=== PATIENT | female | born 1940 | race Caucasian/White ===

== ENCOUNTER 2016-09-24 13:34 | Emergency (ER) | payer MEDICARE, BC, OTHER ==
[~2016-09-24] VITALS: Ht 162.6 cm; Wt 74.8 kg
[~2016-09-24 13:34] MED LIST: CELE200C PO; SYNT137T PO; TRAM50TA PO
[2016-09-24 13:59] VITALS: BP 145/83; PULSE 84; RESP 16; TEMP 98.2; O2SAT 96
[2016-09-24] MEDS ORDERED: LEVO-86 PO (14:12)
[2016-09-24] MEDS ORDERED: CELE200C PO (14:12)
[2016-09-24] MEDS ORDERED: TRAM50TA PO (14:13)
--- NOTE | 2016-09-24 14:27 | PD ---
HPI Chief Complaint: Fall Time Seen by Provider: 14:27 Travel History International Travel<30 days: No Contact w/Intl Traveler<30days: No Traveled to known affect area: No History of Present Illness HPI 76-year-old female presents to the emergency department for evaluation of fall. The patient states that she was walking in her garage and tripped over something causing her to fall forward catching herself with her hands but ultimately hitting her face on the ground. States that her glasses cut the bridge of her nose. States that she is having pain in her left hand, right ribs and a headache. She denies any lightheadedness, dizziness, nausea, vomiting, blurred vision, neck pain, back pain, numbness or tingling, weakness. Denies any anticoagulation. Unsure of last tetanus vaccination. No other complaints. PFSH Past Medical History Arthritis: Yes High Cholesterol: Yes Diminished Hearing: No Thyroid Disease: Yes Tetanus Vaccination: Unknown Influenza Vaccination: Yes Menopausal: Yes Past Surgical History Eye Surgery: Yes (right eye-cataract removal) Tonsillectomy: Yes Social History Alcohol Use: Yes ("occasionally") Tobacco Use: No Substance Use: No Allergies-Medications (Allergen,Severity, Reaction): Coded Allergies: Cipro (Verified Allergy, Severe, hives, 09/24/16) Sulfa (Verified Allergy, Severe, UNKNOWN, 09/24/16) Reported Meds & Prescriptions Reported Meds & Active Scripts Active Reported Tramadol (Tramadol HCl) 50 Mg Tab 50 Mg PO Q8H PRN Celebrex (Celecoxib) 200 Mg Cap 200 Mg PO BID Synthroid (Levothyroxine Sodium) 137 Mcg Tab 137 Mcg PO DAILY Review of Systems Except as stated in HPI: all other systems reviewed are Neg Physical Exam Narrative GENERAL: Well-nourished and well-developed pleasant patient in no acute distress. SKIN: Skin avulsion to bridge of nose. Abrasions to right side of face. HEAD: Normocephalic and atraumatic. No bony point tenderness or crepitus noted throughout the scalp and facial bones. EYES: No scleral icterus, injection, or drainage. PERRLA. EOMI. No hyphema present. ENT: Swelling of nose with tenderness to palpation. No septal hematoma or hemotympanum noted. Oropharynx is clear and the airway is patent. NECK: Supple and the trachea is midline. No obvious deformities, crepitus, or midline tenderness noted. Full range of motion. CARDIOVASCULAR: Regular rate and rhythm. RESPIRATORY: Breath sounds are equal bilaterally with no accessory muscle use, wheezing, rhonchi, or crackles. Tenderness to palpation of right anterior ribs , no obvious deformities or step-offs noted. GASTROINTESTINAL: Abdomen is soft, non-tender, and nondistended. MUSCULOSKELETAL: Tenderness to palpation over MCP of left second and third joints with limited range of motion secondary to pain. Radial pulses are 2+ bilaterally. Capillary refill is within normal limits. 2 point discrimination is intact. No obvious deformities, swelling, cyanosis, or ecchymosis is present throughout the upper and lower extremities. Patient has full range of motion without any signs of neurovascular compromise. BACK: Nontender without any obvious deformities, bony point tenderness, or crepitus noted throughout the thoracic and lumbar vertebrae. NEUROLOGICAL: Awake, alert, and oriented. Normal speech and gait. Cranial nerves are grossly intact. Data Data Last Documented VS Vital Signs Date Time Temp Pulse Resp B/P Pulse Ox O2 Delivery O2 Flow Rate FiO2 09/24/16 14:07 16 100 Room Air 09/24/16 13:59 98.2 84 145/[address] Brain W/O Iv Contrast(Rout) (09/24/16 14:25) Ct Facial Bones W/O Iv Cont (09/24/16 14:25) Hand, Complete ([id number]) (09/24/16 14:25) Acetaminophen (Tylenol) (09/24/16 14:30) Chest, Pa & Lat (09/24/16 14:25) Tetanus/Diphtheria Tox Adult (Tetanus/Di (09/24/16 14:30) Wound Care (09/24/16 15:49) MDM Medical Decision Making Medical Screen Exam Complete: Yes Emergency Medical Condition: Yes Differential Diagnosis Contusion versus fracture versus abrasion versus avulsion versus intracranial hemorrhage unlikely Narrative Course 76-year-old female presents the emergency department for evaluation of mechanical fall hitting her face, hands and right ribs. Patient is afebrile, vital signs are stable. No focal neurologic deficits. CT and x-ray imaging has been ordered and is pending. Head CT is negative for any acute abnormalities. CT of the facial bones is negative for any acute abnormalities. X-ray of the left hand is negative for any acute abnormalities. Chest x-ray is negative for any acute abnormalities. Patient has remained stable and without complaint while here in the emergency department. Her wound is cleaned and dressed with ointment and a Band-Aid. Her left hand is placed in an Stefano wrap. She states that she has tramadol at home for pain and is comfortable taking this for her pain. Discussed supportive care with the patient. Advised her to follow-up as an outpatient with her PCP. Patient verbalizes understanding and agreement with treatment plan. Diagnosis Primary Impression: Facial contusion Qualified Code: S00.83XA - Facial contusion, initial encounter Additional Impressions: Skin avulsion Contusion of rib on right side Qualified Code: S20.211A - Contusion of rib on right side, initial encounter Sprain of left hand Qualified Code: S63.92XA - Sprain of left hand, initial encounter Fall Qualified Code: W19.XXXA - Fall, initial encounter Referrals: Primary Care Physician Patient Instructions: General Instructions Additional Instructions: Rest. Apply ice for 20 minutes on, 20 minutes off. Follow-up with your Primary Care Physician. Return to the ED for any acute worsening of symptoms. Med/Other Pt SpecificInfo: No Change to Meds Disposition: 01 DISCHARGE HOME Condition: Stable Keisha Kohli Sep 24, 2016 14:27
[2016-09-24] MEDS ORDERED: TETANUS/DIPHTHERIA TOXOID ADULT 0.5 ML VIAL IM ONE (14:30)
[2016-09-24] MEDS ORDERED: ACETAMINOPHEN 500 MG CPLT PO ONE (14:30)
--- NOTE | 2016-09-24 15:12 | RADHPO ---
EXAM DATE/TIME: 09/24/2016 14:43 [facility] COMPARISON: No previous studies available for comparison. INDICATIONS : Trauma. Fell on concrete floor. Abrasions to face and bridge of nose. Cephalgia. RADIATION DOSE: 34.78 CTDIvol (mGy) MEDICAL HISTORY : Hypothyroidism. SURGICAL HISTORY : None. ENCOUNTER: Initial ACUITY: 1 day PAIN SCORE: 4/10 LOCATION: facial TECHNIQUE: Volumetric scanning of the facial bones was performed. Using automated exposure control and adjustme nt of the mA and/or kV according to patient size, radiation dose was kept as low as reasonably achiev able to obtain optimal diagnostic quality images. FINDINGS: No definite fractures, or dislocations are identified. No definite lytic or sclerotic lesion is seen . There is mild mucoperiosteal thickening within some of the eithmoid air cells. CONCLUSION: No definite fracture is seen for technique. Rosemary Ozuna MD on September 24, 2016 at 15:07 Board Certified Radiologist. This report was verified electronically.
--- NOTE | 2016-09-24 15:14 | RADHPO ---
EXAM DATE/TIME: 09/24/2016 14:43 [facility] COMPARISON: No previous studies available for comparison. INDICATIONS : Trauma. Fell on concrete floor. Abrasions to face and bridge of nose. Cephalgia. RADIATION DOSE: 69.39 CTDIvol (mGy) MEDICAL HISTORY : Hypothyroidism. SURGICAL HISTORY : None. ENCOUNTER: Initial ACUITY: 1 day PAIN SCALE: 2/10 LOCATION: Cranial TECHNIQUE: Multiple contiguous axial images were obtained of the head. Using automated exposure control and adj ustment of the mA and/or kV according to patient size, radiation dose was kept as low as reasonably a chievable to obtain optimal diagnostic quality images. FINDINGS: There are old lacunar infarcts within the left basal ganglia and to a much lesser extent right basal ganglia. There is no acute hemorrhage, acute infarct, mass effect or extra-axial fluid collections. The ventricles, sulci, and cisterns are normal in size, shape and position for the patient's age. The bone windows are unremarkable. CONCLUSION: 1. 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 2. No acute infarct, acute hemorrhage, mass effect or extra-axial fluid collections. Jarvis Horn MD on September 24, 2016 at 15:05 Board Certified Radiologist. This report was verified electronically.
--- NOTE | 2016-09-24 15:19 | RADHPO ---
EXAM DATE/TIME: 09/24/2016 15:03 [facility] COMPARISON: No previous studies available for comparison. INDICATIONS : Left hand pain; fell today. MEDICAL HISTORY : None. SURGICAL HISTORY : None. ENCOUNTER: Initial ACUITY: 1 day PAIN SCORE: 8/10 LOCATION: Left 4thand 5th digits; hand. FINDINGS: No definite fractures, or dislocations are identified. No definite lytic or sclerotic lesion is seen . Moderate degenerative arthritis is present within multiple interphalangeal joints and first carpome tacarpal joint. CONCLUSION: Chronic changes and no evidence for acute fracture. Rosemary Ozuna MD on September 24, 2016 at 15:11 Board Certified Radiologist. This report was verified electronically.
--- NOTE | 2016-09-24 15:38 | RADHPO ---
EXAM DATE/TIME: 09/24/2016 14:58 [facility] COMPARISON: No previous studies available for comparison. INDICATIONS : Chest discomfort; fell today. MEDICAL HISTORY : None. SURGICAL HISTORY : ENCOUNTER: Initial ACUITY: 1 day PAIN SCORE: 10 LOCATION: Bilateral chest FINDINGS: PA and lateral views of the chest demonstrate the lungs to be symmetrically aerated without evidence of mass, infiltrate or effusion. The cardiomediastinal contours are unremarkable. Osseous structure s are intact. CONCLUSION: No acute disease. Harshil Nicholson MD on September 24, 2016 at 15:36 Board Certified Radiologist. This report was verified electronically.
== END 2016-09-24 16:36 | disposition home or self-care (01) ==
LOC: PHEFT 13:34
DX: S00.83XA Contusion of other part of head, initial encounter (principal); S20.211A Contusion of right front wall of thorax, initial encounter; S63.92XA Sprain of unspecified part of left wrist and hand, initial encounter; Z23 Encounter for immunization; E78.00 Pure hypercholesterolemia, unspecified; E07.9 Disorder of thyroid, unspecified; W18.00XA Striking against unspecified object with subsequent fall, initial encounter; Y93.01 Activity, walking, marching and hiking; Y92.008 Other place in unspecified non-institutional (private) residence as the place of occurrence of the external cause; Y99.8 Other external cause status
CPT/HCPCS: 70450; 70486; 71020; 73130; 90471; 90714

== ENCOUNTER 2018-02-02 17:01 | Observation (INO) ==
--- NOTE | 2018-02-02 18:16 | ED ---
HPI General Chief complaint: Eye Problems Stated complaint: Sent by primary doc Source: patient Mode of arrival: ambulatory Limitations: no limitations History of Present Illness HPI Narrative: Patient presents with acute onset of decreased vision of right eye. The vision loss is central with the peripheral severe preserved. The patient notes acute onset of this symptom yesterday afternoon. Patient was seen by her PMD and referred to automotive internet sales manager today. 1 hour prior to arrival patient was seen by the automotive internet sales manager and sent here for our evaluation. 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 Patient has no pain or discomfort but has the loss of vision persistently without change since occurrence yesterday afternoon. Patient has no history of CVA or previous episodes similar to this. Patient has no other neurologic symptoms weakness or muscle weakness. Related Data Home Medications Medication Instructions Recorded Confirmed Celebrex 50 mg PO DAILY 02/02/18 02/02/18 Synthroid PO DAILY 02/02/18 tramadol 100 mg PO BID 02/02/18 02/02/18 Allergies Allergy/AdvReac Type Severity Reaction Status Date / Time ciprofloxacin Allergy Severe hives Verified 02/02/18 17:24 Sulfa (Sulfonamide Allergy Severe UNKNOWN Verified 02/02/18 17:24 Antibiotics) Review of Systems ROS: all other systems reviewed are negative [facility] Medical History Medical History Arthritis (Acute) Hx of hysterectomy (Acute) Hyperthyroidism (Acute) Surgical History Surgical History Hx of eye surgery (Acute) Social History Social History Substance History: No History of Abuse Second Hand Smoke Exposure: No Smoking Status: Never smoker How Often Do You Have a Drink Containing Alcohol: 4 or more times a week Recent Travel in [facility] within the Last 8 Weeks: No Recent Out of Country Travel within the Last 8 Weeks: No Immunization History Tetanus Immunization: <5 Years Hx Influenza Vaccine This Season: Yes Exam Narrative Exam Narrative: GENERAL: Alert and oriented SKIN: Focused skin assessment warm/dry. HEAD: Atraumatic. Normocephalic. EYES: Pupils equal and round. No scleral icterus. No injection or drainage. Pupils dilated secondary to dilatation prior to arrival. Funduscopic shows central artery occlusion. Patient has significantly reduced central vision but peripheral vision maintained. ENT: No nasal bleeding or discharge. Mucous membranes pink and moist. NECK: Trachea midline. No JVD. CARDIOVASCULAR: Regular rate and rhythm. No murmur appreciated. RESPIRATORY: No accessory muscle use. Clear to auscultation. Breath sounds equal bilaterally. GASTROINTESTINAL: Abdomen soft, non-tender, nondistended. Hepatic and splenic margins not palpable. MUSCULOSKELETAL: No obvious deformities. No clubbing. No cyanosis. No edema. NEUROLOGICAL: Awake and alert. No obvious cranial nerve deficits. Motor grossly within normal limits. Normal speech. PSYCHIATRIC: Appropriate mood and affect; insight and judgment normal. Course Reevaluation(s) Reevaluation #1: Patient advised as to findings and the need for admission for further evaluation for the cause. Patient wants to signed out AGAINST MEDICAL ADVICE however agrees that we talked to her automotive internet sales manager first. Time: 22:30 Reevaluation #2: Talk to Dr. Degroot the patient's automotive internet sales manager. He strongly advised the patient be admitted for at least 23 hours and have further studies to make sure there is no evidence of mural thrombus or carotid embolization. Patient agrees for admission. Time: 23:17 Initial Documented Vital Signs Pulse Rate 72 02/02/18 17:20 Respiratory Rate 16 02/02/18 17:20 Blood Pressure 161/78 H 02/02/18 17:20 Pulse Oximetry 98 02/02/18 17:20 Last Documented Vital Signs Temperature 97.8 F 02/02/18 17:21 Pulse Rate 75 02/02/18 17:21 Respiratory Rate 16 02/02/18 17:21 Blood Pressure 157/86 H 02/02/18 20:14 Pulse Oximetry 99 02/02/18 17:21 Medical Decision Making MDM Narrative Medical decision making narrative: Patient had acute onset of vision loss in the right eye at 3 PM yesterday and was seen and evaluated by PMD and automotive internet sales manager prior to arrival. Patient was scheduled for CTA of head and neck. Case was discussed with patient's automotive internet sales manager Dr. Nur. Funduscopic showed central artery occlusion and CT showed no evidence of other vascular difficulty. Medical Screen Exam Complete: Yes Emergency Medical Condition: Yes Lab Data Result diagrams: 02/02/18 18:57 02/02/18 18:57 Lab Results 02/02/18 02/02/18 02/02/18 Range/Units 18:43 18:57 18:57 CBC w Diff Auto diff final WBC 6.4 (4.0-11.0) th/mm3 RBC 4.30 (4.00-5.30) mil/mm3 Hgb 13.3 (11.6-15.3) gm/dL Hct 39.4 (35.0-46.0) % MCV 91.8 (80.0-100.0) fL MCH 31.0 (27.0-34.0) pg MCHC 33.8 (32.0-36.0) % RDW 13.4 (11.6-17.2) % Plt Count 284 (150-450) th/mm3 MPV 8.0 (7.0-11.0) fL Neut % (Auto) 46.9 (16.0-70.0) % Lymph % (Auto) 39.0 (9.0-44.0) % Woodward % (Auto) 9.6 H (0.0-8.0) % Eos % (Auto) 3.7 (0.0-4.0) % Baso % (Auto) 0.8 (0.0-2.0) % Neut # (Auto) 3.0 (1.8-7.7) th/mm3 Lymph # (Auto) 2.5 (1.0-4.8) th/mm3 Woodward # (Auto) 0.6 (0.0-0.9) th/mm3 Eos # (Auto) 0.2 (0.0-0.4) th/mm3 Baso # (Auto) 0.1 (0.0-0.2) th/mm3 WBC Differential . Differential Comment . PT 10.3 (9.8-11.6) sec INR 1.0 Ratio APTT 26.2 (24.3-30.1) sec Sodium (136-145) meq/L Potassium (3.5-5.1) meq/L Chloride (98-107) meq/L Carbon Dioxide (21.0-32.0) meq/L Anion Gap (5-15) meq/L BUN (7-18) mg/dL Creatinine (0.50-1.00) mg/dL Estimated GFR (>89) mL/min Random Glucose (74-106) mg/dL Calcium (8.5-10.1) mg/dL Total Creatine Kinase (26-192) U/L CK-MB (CK-2) (0.5-3.6) ng/mL CK-MB (CK-2) % (0.0-4.0) % Troponin I (0.02-0.05) ng/mL Urine Color Yellow (Yellw/Straw) Urine Clarity Clear (Clear) Urine pH 6.0 (5.0-8.5) Ur Specific [place] 1.010 (1.002-1.035) Urine Protein Negative (Neg-Trace) mg/dL Urine Glucose (UA) 100 H (Negative) mg/dL Urine Ketones Negative (Negative) mg/dL Urine Occult Blood Negative (Negative) Urine Nitrate Negative (Negative) Urine Bilirubin Negative (Negative) Urine Urobilinogen 0.2 (Less than 2) mg/dL Ur Leukocyte Esterase Small H (Negative) Urine RBC 0-3 (0-3) /hpf Urine WBC 0-5 (0-5) /hpf Ur Squamous Epith Cells 0-5 (0-5) /hpf Micro UA Comment Culture not ind Ur Microscopic Review Microscopic reviewed Urine Culture Comments Culture not ind 02/02/18 Range/Units 18:57 CBC w Diff WBC (4.0-11.0) th/mm3 RBC (4.00-5.30) mil/mm3 Hgb (11.6-15.3) gm/dL Hct (35.0-46.0) % MCV (80.0-100.0) fL MCH (27.0-34.0) pg MCHC (32.0-36.0) % RDW (11.6-17.2) % Plt Count (150-450) th/mm3 MPV (7.0-11.0) fL Neut % (Auto) (16.0-70.0) % Lymph % (Auto) (9.0-44.0) % Woodward % (Auto) (0.0-8.0) % Eos % (Auto) (0.0-4.0) % Baso % (Auto) (0.0-2.0) % Neut # (Auto) (1.8-7.7) th/mm3 Lymph # (Auto) (1.0-4.8) th/mm3 Woodward # (Auto) (0.0-0.9) th/mm3 Eos # (Auto) (0.0-0.4) th/mm3 Baso # (Auto) (0.0-0.2) th/mm3 WBC Differential Differential Comment PT (9.8-11.6) sec INR Ratio APTT (24.3-30.1) sec Sodium 140 (136-145) meq/L Potassium 5.2 H (3.5-5.1) meq/L Chloride 105 (98-107) meq/L Carbon Dioxide 28.6 (21.0-32.0) meq/L Anion Gap 6 (5-15) meq/L BUN 14 (7-18) mg/dL Creatinine 0.97 (0.50-1.00) mg/dL Estimated GFR 56 L (>89) mL/min Random Glucose 84 (74-106) mg/dL Calcium 8.7 (8.5-10.1) mg/dL Total Creatine Kinase 216 H (26-192) U/L CK-MB (CK-2) 3.5 (0.5-3.6) ng/mL CK-MB (CK-2) % 1.6 (0.0-4.0) % Troponin I Less than 0.02 L (0.02-0.05) ng/mL Urine Color (Yellw/Straw) Urine Clarity (Clear) Urine pH (5.0-8.5) Ur Specific [place] (1.002-1.035) Urine Protein (Neg-Trace) mg/dL Urine Glucose (UA) (Negative) mg/dL Urine Ketones (Negative) mg/dL Urine Occult Blood (Negative) Urine Nitrate (Negative) Urine Bilirubin (Negative) Urine Urobilinogen (Less than 2) mg/dL Ur Leukocyte Esterase (Negative) Urine RBC (0-3) /hpf Urine WBC (0-5) /hpf Ur Squamous Epith Cells (0-5) /hpf Micro UA Comment Ur Microscopic Review Urine Culture Comments Imaging Data Radiologist's impression: Head CTA 02/02/18 18:19 CONCLUSION: Negative CTA of the head. Neck CTA 02/02/18 18:19 CONCLUSION: Minimal calcification of the proximal left subclavian artery and the left carotid bulb regions without significant stenosis. Discharge Plan Discharge Disposition Patient Disposition: 30 Still Patient Physicians Team ED Provider: Rd Mcdaniels Primary Care Provider: Yair Vazquez Rxs /Orders / Referrals /Forms Prescriptions: No Action Celebrex 50 mg PO DAILY RF: 0 Synthroid PO DAILY RF: 0 tramadol 100 mg PO BID RF: 0 Status ED Status: With Nurse
[2018-02-02] MEDS ORDERED: Sod Chloride 0.9% Inj 1,000 ML IV.CONT SCH (18:30)
[2018-02-02 19:05] LABS: Bilirubin,Urine Negative (Negative); Clarity,Urine Clear (Clear); Color,Urine Yellow (Yellw/Straw); Glucose,Urine (UA) 100 mg/dL (Negative); Leukocyte Esterase,Urine Small (Negative); Nitrite,Urine Negative (Negative); Urobilinogen,Urine 0.2 mg/dL (Less than 2)
[2018-02-02 19:10] LABS: White Blood Count 6.4 th/mm3 (4.0-11.0)
[2018-02-02 19:11] LABS: RBC,Urine 0-3 /hpf (0-3); Squamous Epithelial Cell,Urine 0-5 /hpf (0-5); WBC,Urine 0-5 /hpf (0-5)
[2018-02-02 19:11] LABS: Baso # (Auto) 0.1 th/mm3 (0.0-0.2); Baso % (Auto) 0.8 % (0.0-2.0); Eos # (Auto) 0.2 th/mm3 (0.0-0.4); Eos % (Auto) 3.7 % (0.0-4.0); Hematocrit 39.4 % (35.0-46.0); Hemoglobin 13.3 gm/dL (11.6-15.3); Lymph # (Auto) 2.5 th/mm3 (1.0-4.8); Mean Corpuscular HGB Conc 33.8 % (32.0-36.0); Mean Corpuscular Volume 91.8 fL (80.0-100.0); Mono # (Auto) 0.6 th/mm3 (0.0-0.9); Mono % (Auto) 9.6 % (0.0-8.0); Neut % (Auto) 46.9 % (16.0-70.0); Platelet Count 284 th/mm3 (150-450); Red Cell Distribution Width 13.4 % (11.6-17.2)
[2018-02-02 19:14] LABS: Chloride 105 meq/L (98-107); Potassium 5.2 meq/L (3.5-5.1); Sodium 140 meq/L (136-145)
[2018-02-02 19:17] LABS: Anion Gap 6 meq/L (5-15); Calcium 8.7 mg/dL (8.5-10.1); Carbon Dioxide 28.6 meq/L (21.0-32.0); Glucose,Random 84 mg/dL (74-106)
[2018-02-02 19:18] LABS: Activated Partial Thrombo Time 26.2 sec (24.3-30.1); Blood Urea Nitrogen 14 mg/dL (7-18); Prothrombin Time 10.3 sec (9.8-11.6)
[2018-02-02 19:21] LABS: Glomerular Filtration Rate 56 mL/min (>89)
[2018-02-02 19:24] LABS: Creatine Kinase 216 U/L (26-192)
[2018-02-02 19:36] LABS: CKMB Percent 1.6 % (0.0-4.0); Creatine Kinase MB 3.5 ng/mL (0.5-3.6)
--- NOTE | 2018-02-02 21:27 | CT ---
EXAM DATE: 02/02/2018 9:20 PM EDT AGE/SEX: 77 years / Female INDICATIONS: Vision loss right eye. Evaluate for central artery occlusion. CLINICAL DATA: This is the patient's initial encounter. Patient reports that signs and symptoms have been present for 1 day and indicates a pain score of 0/10. MEDICAL/SURGICAL HISTORY: None. . Right eye. RADIATION DOSE: 42.28 CTDI (mGy) ; Combined studies COMPARISON: [facility], CT BRAIN W/O CONTRAST, 09/24/2016. . TECHNIQUE: Volumetric scanning was performed using a multi-row detector CT scanner during bolus infu parker of 100 ml Omnipaque 350 (iohexol) nonionic water-soluble contrast as a cumulative dose for mult iple exams. The data was post processed with a variety of visualization algorithms including full v olume maximum intensity projection, multi-planar sliding thin slab reformation, curved planar reforma tion, and surface rendering techniques. Using automated exposure control and adjustment of the mA an d/or kV according to patient size, radiation dose was kept as low as reasonably achievable to obtain optimal diagnostic quality images. DICOM format image data is available electronically for review an d comparison. FINDINGS: There is excellent visualization of the major intracranial arteries out to the second-order branch ve ssels. There is no evidence for aneurysm, vessel truncation or stenosis, and no evidence for vascula r malformation. The internal carotid arteries are normal bilaterally. There are seen to normally bifu rcate into the anterior and middle cerebral arteries. Both vertebral artery patent. Most of the basil ar artery flow arises from the left vertebral artery. The basilar artery primarily ends as the left p osterior cerebral artery. Most of the flow from the right posterior cerebral artery arises from the r ight internal carotid artery. This a normal variant. The distal flow appears symmetric. CONCLUSION: Negative CTA of the head. Electronically signed by: Hosea Shaw MD 02/02/2018 9:26 PM EDT
--- NOTE | 2018-02-02 21:32 | CT ---
EXAM DATE: 02/02/2018 9:23 PM EDT AGE/SEX: 77 years / Female INDICATIONS: Vision loss right eye. Evaluate for occlusion in right central artery. CLINICAL DATA: This is the patient's initial encounter. Patient reports that signs and symptoms have been present for 1 day and indicates a pain score of 0/10. MEDICAL/SURGICAL HISTORY: None. None. RADIATION DOSE: 42.28 CTDI (mGy) ; Combined studies COMPARISON: No prior exams available for comparison. TECHNIQUE: Volumetric scanning was performed using a multirow detector CT scanner during bolus infus ion of 100 ml Omnipaque 350 (iohexol) nonionic water-soluble contrast as a cumulative dose for multi ple exams. The data was postprocessed with a variety of visualization algorithms including full-vol ume maximum intensity projection, multiplanar sliding thin-slab reformation, curved-planar reformatio n, and surface-rendering techniques. Using automated exposure control and adjustment of the mA and/o r kV according to patient size, radiation dose was kept as low as reasonably achievable to obtain opt imal diagnostic quality images. DICOM format image data is available electronically for review and c omparison. FINDINGS: Aortic Arch: There is a three-vessel origin of the great vessels from the aorta. No evidence of ost ial narrowing. There is minimal calcification at the proximal left subclavian artery region without s ignificant stenosis. Right Carotid: The common carotid artery is intact. The carotid bulb has a normal configuration wit hout ulceration or narrowing. The internal carotid artery lumen is smooth without stenosis. The ext ernal carotid artery is intact. Left Carotid: The common carotid artery is intact. There is minimal calcification at the left carot id bulb region without significant stenosis. The internal carotid artery lumen is smooth without jc nosis. The external carotid artery is intact. Vertebrals: The vertebral arteries have a symmetric diameter. No stenotic lesions are seen. Percent stenosis is calculated using the diameter of the stenotic region over the diameter of the nor mal distal internal carotid artery. CONCLUSION: Minimal calcification of the proximal left subclavian artery and the left carotid bulb regions withou t significant stenosis. Electronically signed by: Hosea Shaw MD 02/02/2018 9:30 PM EDT
[2018-02-02] MEDS ORDERED: Enoxaparin Inj 100 MG/ML Syringe SQ ONE (23:26)
[2018-02-02] MEDS ORDERED: Dextrose 50% in Water 50 ML Vial IV.PUSH PRN (23:57)
[2018-02-03] MEDS ORDERED: Enoxaparin Inj 60 MG/0.6 ML Syringe SQ SCH (09:00)
[2018-02-03 10:46] LABS: Chol/HDL Ratio 4.63 Ratio; HDL Cholesterol 67.9 mg/dL (40.0-60.0)
--- NOTE | 2018-02-03 10:50 | P.HP ---
History of Present Illness Service: Hospitalist Primary Care Physician: Yair Vazquez MD Chief Complaint: Right eye vision problem History of Present Illness: Ms. Lester is a pleasant 77-year-old female with a history of hypothyroidism, osteoarthritis who presents to the emergency department on the advice of her retina specialist due to central retinal artery occlusion on the right side. On 02/01/2018 in the afternoon patient had acute onset of vision problem on her right eye. She noticed almost complete blackness with her right eye when she closed her left eye. She went to see her gas leak inspector who subsequently referred her to a retina specialist Dr. Degroot. Dr. Degroot diagnosed patient with central retinal artery occlusion OD. No retinal detachment or retinal tear noted. Patient was subsequently advised to come to the emergency department for medical evaluation including EKG, cardiac echo as well as ESR. At the time of this interview, patient reports some vision problems but improved. No chest pain, shortness of breath, fever or chills. No changes in bowel or bladder habits. Past medical history: Hypothyroidism, osteoarthritis Past surgical history: Hysterectomy, shoulder surgery, tonsillectomy Social history: Patient denies using tobacco or illicit drugs. She drinks 1 glass of wine every other day. Family history: Sister had breast cancer. No family history of Alzheimer's or Parkinson's. - Diagnosis (1) Central retinal artery occlusion of right eye Review of Systems All other systems reviewed negative except as stated in HPI [facility] - History History Provided By: Patient - Medical History Medical History: Medical History (Last Reviewed 02/03/18 @ 08:29 by Bindu Trejo) Arthritis Hx of hysterectomy Hyperthyroidism - Surgical History Surgical History: Surgical History (Last Reviewed 02/03/18 @ 08:29 by Bindu Trejo) Hx of eye surgery - Tobacco History Second Hand Smoke Exposure: No Tobacco Use In Past 30 Days: No Smoking Status: Never smoker - Alcohol History How Often Do You Have a Drink Containing Alcohol: 4 or more times a week - Substance Use History Substance History: No History of Abuse - Travel History Recent Travel in the [place] Within the Last 8 Weeks: No Recent Travel Out of the Country Within the Last 8 Weeks: No - Immunization History Tetanus Immunization: Unsure Hx Influenza Vaccine This Season: Yes Medications and Allergies Active Medications: Active Medications Aspirin (Aspirin Chew) 81 mg PO DAILY DANNIELLE Last Admin: 02/03/18 08:10 Dose: 81 mg Dextrose (D50w Vial) 50 ml IV.PUSH UNSCH PRN PRN Reason: per Hypoglycemic Protocol Glucagon (Glucagon Inj) 1 mg OTHER UNSCH PRN PRN Reason: per Hypoglycemic Protocol Sodium Chloride (Ns Flush) 2 ml IV.FLUSH PRN PRN PRN Reason: FLUSH AFTER USING IV ACCESS Allergies Allergy/AdvReac Type Severity Reaction Status Date / Time ciprofloxacin Allergy Severe hives Verified 02/02/18 17:24 Sulfa (Sulfonamide Allergy Severe UNKNOWN Verified 02/02/18 17:24 Antibiotics) Home Medications Medication Instructions Recorded Confirmed Type Celebrex 50 mg PO DAILY 02/02/18 02/02/18 History Synthroid PO DAILY 02/02/18 History tramadol 100 mg PO BID 02/02/18 02/02/18 History Exam Vital signs: Vital Signs 02/02/18 17:20 02/02/18 17:21 02/02/18 20:14 Temperature 97.8 F Pulse Rate 87 75 Respiratory Rate 16 16 Blood Pressure 161/78 H 160/82 H 157/86 H Pulse Oximetry 98 99 02/03/18 02:30 02/03/18 04:45 02/03/18 04:50 Temperature 97.7 F 97.6 F 97.6 F Pulse Rate 64 62 62 Respiratory Rate 20 20 20 Blood Pressure 146/80 H 185/86 H 189/87 H Pulse Oximetry 99 100 100 02/03/18 04:55 02/03/18 09:15 Temperature 97.6 F 96.5 F L Pulse Rate 62 67 Respiratory Rate 20 16 Blood Pressure 199/97 H 176/82 H Pulse Oximetry 100 95 Intake & Output 02/02/18 02/03/18 02/03/18 18:59 06:59 18:59 Intake Total 0 / 0 Balance 0 / 0 Weight 74.6 kg 73 kg Intake: Oral 0 / 0 Other: # Voids 2 Weight On Admission 73.3 kg Narrative: GENERAL: This is a well-nourished, well-developed patient, in no apparent distress. SKIN: No rashes, ecchymoses or lesions. Warm and dry. HEAD: Atraumatic. Normocephalic. No temporal or scalp tenderness. EYES: Pupils equal round and reactive. No injection or drainage. On the right side, there is some central vision loss but not complete loss, Peripheral vision appears to be intact. ENT: Nose without bleeding, purulent drainage or septal hematoma. Airway patent. NECK: Trachea midline. No lymphadenopathy. Supple, nontender, no meningeal signs. CARDIOVASCULAR: Regular rate and rhythm without murmurs, gallops, or rubs. No JVD. RESPIRATORY: Clear to auscultation. Breath sounds equal bilaterally. No wheezes , rales, or rhonchi. GASTROINTESTINAL: Abdomen soft, non-tender, nondistended. No guarding. MUSCULOSKELETAL: Extremities without clubbing, cyanosis, or edema. NEUROLOGICAL: Awake and alert. Cranial nerves II through XII intact. No focal neurological deficits. Normal speech. Results - Labs CBC & Chem 7: 02/02/18 18:57 02/03/18 10:44 Labs: Laboratory Results - last 24 hr 02/02/18 02/02/18 02/02/18 18:43 18:57 18:57 CBC w Diff Auto diff final WBC 6.4 RBC 4.30 Hgb 13.3 Hct 39.4 MCV 91.8 MCH 31.0 MCHC 33.8 RDW 13.4 Plt Count 284 MPV 8.0 Neut % (Auto) 46.9 Lymph % (Auto) 39.0 Dougherty % (Auto) 9.6 H Eos % (Auto) 3.7 Baso % (Auto) 0.8 Neut # (Auto) 3.0 Lymph # (Auto) 2.5 Dougherty # (Auto) 0.6 Eos # (Auto) 0.2 Baso # (Auto) 0.1 WBC Differential . Differential Comment . PT 10.3 INR 1.0 APTT 26.2 Sodium Potassium Chloride Carbon Dioxide Anion Gap BUN Creatinine Estimated GFR POC Glucose Random Glucose Calcium Total Creatine Kinase CK-MB (CK-2) CK-MB (CK-2) % Troponin I Urine Color Yellow Urine Clarity Clear Urine pH 6.0 Ur Specific Drum[place] 1.010 Urine Protein Negative Urine Glucose (UA) 100 H Urine Ketones Negative Urine Occult Blood Negative Urine Nitrate Negative Urine Bilirubin Negative Urine Urobilinogen 0.2 Ur Leukocyte Esterase Small H Urine RBC 0-3 Urine WBC 0-5 Ur Squamous Epith Cells 0-5 Micro UA Comment Culture not ind Ur Microscopic Review Microscopic reviewed Urine Culture Comments Culture not ind 02/02/18 02/03/18 18:57 07:41 CBC w Diff WBC RBC Hgb Hct MCV MCH MCHC RDW Plt Count MPV Neut % (Auto) Lymph % (Auto) Dougherty % (Auto) Eos % (Auto) Baso % (Auto) Neut # (Auto) Lymph # (Auto) Dougherty # (Auto) Eos # (Auto) Baso # (Auto) WBC Differential Differential Comment PT INR APTT Sodium 140 Potassium 5.2 H Chloride 105 Carbon Dioxide 28.6 Anion Gap 6 BUN 14 Creatinine 0.97 Estimated GFR 56 L POC Glucose 85 Random Glucose 84 Calcium 8.7 Total Creatine Kinase 216 H CK-MB (CK-2) 3.5 CK-MB (CK-2) % 1.6 Troponin I Less than 0.02 L Urine Color Urine Clarity Urine pH Ur Specific Drumright Urine Protein Urine Glucose (UA) Urine Ketones Urine Occult Blood Urine Nitrate Urine Bilirubin Urine Urobilinogen Ur Leukocyte Esterase Urine RBC Urine WBC Ur Squamous Epith Cells Micro UA Comment Ur Microscopic Review Urine Culture Comments - Imaging Impressions Head CTA 02/02/18 18:19 CONCLUSION: Negative CTA of the head. Neck CTA 02/02/18 18:19 CONCLUSION: Minimal calcification of the proximal left subclavian artery and the left carotid bulb regions without significant stenosis. Caprini VTE Risk Assessment Caprini VTE Risk Assessment: No/Low Risk (score <= 1) Caprini Risk Assessment Model: Point Value = 1 Point Value = 2 Point Value = 3 Point Value = 5 Age 41-60 Minor surgery BMI > 25 kg/m2 Swollen legs Varicose veins or History of unexplained or recurrent spontaneous Oral contraceptives or hormone replacement Sepsis (< 1 month) Serious lung disease, including pneumonia (< 1 month) Abnormal pulmonary function Acute myocardial infarction Congestive heart failure (< 1 month) History of inflammatory bowel disease Medical patient at bed rest Age 61-74 Arthroscopic surgery Major open surgery (> 45 min) Laparoscopic surgery (> 45 min) Malignancy Confined to bed (> 72 hours) Immobilizing plaster cast Central venous access Age >= 75 History of VTE Family history of VTE Factor V Leiden Prothrombin [id number] Lupus anticoagulant Anticardiolipin antibodies Elevated serum homocysteine Heparin-induced thrombocytopenia Other congenital or acquired thrombophilia Stroke (< 1 month) Elective arthroplasty Hip, pelvis, or leg fracture Acute spinal cord injury (< 1 month) Prophylaxis Regimen: Total Risk Factor Score Risk Level Prophylaxis Regimen 0-1 Low Early ambulation 2 Moderate Order ONE of the following: *Sequential Compression Device (SCD) *Heparin 5000 units SQ BID 3-4 Higher Order ONE of the following medications: *Heparin 5000 units SQ TID *Enoxaparin/Lovenox 40 mg SQ daily (WT < 150 kg, CrCl > 30 mL/min) *Enoxaparin/Lovenox 30 mg SQ daily (WT < 150 kg, CrCl > 10-29 mL/min) *Enoxaparin/Lovenox 30 mg SQ BID (WT < 150 kg, CrCl > 30 mL/min) AND/OR *Sequential Compression Device (SCD) 5 or more Highest Order ONE of the following medications: *Heparin 5000 units SQ TID (Preferred with Epidurals) *Enoxaparin/Lovenox 40 mg SQ daily (WT < 150 kg, CrCl > 30 mL/min) *Enoxaparin/Lovenox 30 mg SQ daily (WT < 150 kg, CrCl > 10-29 mL/min) *Enoxaparin/Lovenox 30 mg SQ BID (WT < 150 kg, CrCl > 30 mL/min) AND *Sequential Compression Device (SCD) Assessment and Plan - Assessment (1) Central retinal artery occlusion of right eye Code(s): H34.11 - Central retinal artery occlusion, right eye Status: Acute - Plan Ms. Lester is a pleasant 77-year-old female with a history of hypothyroidism, osteoarthritis who presented to the emergency department for medical evaluation after she was evaluated by a retina specialist due to central retinal artery occlusion on the right side. Central retinal artery occlusion right-sided -She still has some compromised central vision. Peripheral vision appears to be intact. -EKG shows normal sinus rhythm with incomplete right bundle branch block. OH interval 163 ms, QT interval 397 ms and QTc 404 ms. -EKG and physical exam do not indicate any evidence of atrial fibrillation. -ESR and CRP pending. No clinical evidence of giant cell arteritis -For risk reduction, will start patient on aspirin 81 mg daily as well as Lipitor. Hyperlipidemia -Total cholesterol 315, LDL 198 and HDL 67.9, triglyceride 247. -We will start patient on Lipitor 40 mg nightly Mild hypokalemia -Potassium 5.2. Will recheck potassium level. Hypothyroidism Osteoarthritis - Continue Celebrex and tramadol at home. - Continue levothyroxine at home. Full code. Ambulation. Update 2:43PM - Echo shows normal EF. No thrombus. - ESR 14, CRP 0.35. Discharge patient to home Condition on discharge: Improved Heart healthy Diet as tolerated Ad Lissett activity Rx written: Aspirin 81mg Qday Lipitor 40mg QHS Follow-up with primary care physician within one week. Ophthalmology appointment with Dr. Degroot as scheduled.
--- NOTE | 2018-02-03 11:03 | ECG ---
Date Performed: 02/02/2018 Time Performed: 19:17:53 PTAGE: 77 years EKG: Sinus rhythm PREVIOUS TRACING : 02/02/2018 18.34 Since the previous tracing, no significant change not ed DOCTOR: Kyle Mercado Interpretating Date/Time 02/03/2018 11:01:20
--- NOTE | 2018-02-03 11:03 | ECG ---
Date Performed: 02/02/2018 Time Performed: 18:34:30 PTAGE: 77 years EKG: Normal Sinus rhythm Baseline Artifact BORDERLINE ECG PREVIOUS TRACING : 09/18/2010 14.56 Since the previous tracing, no significant change noted DOCTOR: Kyle Mercado Interpretating Date/Time 02/03/2018 11:01:06
[2018-02-03 11:40] LABS: Potassium 4.4 meq/L (3.5-5.1)
--- NOTE | 2018-02-03 11:53 | ECHRPT ---
Indication: CVA/TIA CONCLUSIONS The left ventricular systolic function is normal with an estimated ejection fraction in the range of 60-65%. Normal left ventricular size. Wall thickness is normal. No regional wall motion abnormalities are present. Trace mitral valve regurgitation. Mitral annular calcification is present. Aortic valve sclerosis is present. There is trace tricuspid valve regurgitation. Normal estimated pulmonary pressures. Trivial pulmonary valve regurgitation. BP: / HR: Rhythm: Sinus MEASUREMENTS (Male / Female) Normal Values Technical Quality:Good 2D ECHO LV Diastolic Diameter PLAX 4.4 cm 4.2 - 5.9 / 3.9 - 5.3 cm LV Systolic Diameter PLAX 2.9 cm IVS Diastolic Thickness 1.0 cm 0.6 - 1.0 / 0.6 - 0.9 cm LVPW Diastolic Thickness 1.0 cm 0.6 - 1.0 / 0.6 - 0.9 cm LV Relative Wall Thickness 0.5 RV Internal Dim ED PLAX 2.2 cm LVOT Diameter 1.8 cm LA Systolic Diameter LX 2.9 cm 3.0 - 4.0 / 2.7 - 3.8 cm LV Ejection Fraction MOD 4C 67.0 % LV Ejection Fraction 4C AL 67.8 % M-MODE Aortic Root Diameter MM 2.7 cm LA Systolic Diameter MM 2.6 cm LA Ao Ratio MM 1.0 AV Cusp Separation MM 1.8 cm DOPPLER AV Peak Velocity 132.0 cm/s AV Peak Gradient 7.0 mmHg LVOT Peak Velocity 92.3 cm/s LVOT Peak Gradient 3.4 mmHg AV Area Cont Eq pk 1.8 cm MV Area PHT 4.2 cm Mitral E Point Velocity 72.1 cm/s Mitral A Point Velocity 85.9 cm/s Mitral E to A Ratio 0.8 LV E' Lateral Velocity 8.6 cm/s Mitral E to LV E' Lateral Ratio 8.4 LV E' Septal Velocity 5.5 cm/s Mitral E to LV E' Septal Ratio 13.2 TR Peak Velocity 205.0 cm/s TR Peak Gradient 16.8 mmHg Right Atrial Pressure 10.0 mmHg Pulmonary Artery Systolic Pressu 26.8 mmHg Right Ventricular Systolic Press 26.8 mmHg PV Peak Velocity 73.3 cm/s PV Peak Gradient 2.1 mmHg FINDINGS LEFT VENTRICLE The left ventricular systolic function is normal with an estimated ejection fraction in the range of 60-65%. Normal left ventricular size. Wall thickness is normal. No regional wall motion abnormalities are present. RIGHT VENTRICLE Normal right ventricular size and systolic function. LEFT ATRIUM The left atrial size is normal. RIGHT ATRIUM The right atrial size is normal. ATRIAL SEPTUM Normal atrial septal thickness without atrial level shunting by limited color doppler interrogation. AORTA The aortic root and proximal ascending aorta are normal in size on limited imaging. MITRAL VALVE Structurally normal mitral valve. Trace mitral valve regurgitation. Mitral annular calcification is present. AORTIC VALVE Trileaflet aortic valve. Aortic valve sclerosis is present. TRICUSPID VALVE Structurally normal tricuspid valve. There is trace tricuspid valve regurgitation. Normal estimated pulmonary pressures. PULMONARY VALVE Trivial pulmonary valve regurgitation. VESSELS The inferior vena cava is normal in size. PERICARDIUM No pericardial effusion. Jesús Escalera MD, FACC (Electronically Signed) Final Date:03 February 2018 11:52
[2018-02-03 12:54] VITALS: BP 154/74; PULSE 68; RESP 20; TEMP 97.4; O2SAT 96
[2018-02-03 16:20] LABS: Hemoglobin A1c 5.5 % (4.3-6.0)
== END 2018-02-03 15:55 | disposition home or self-care (01) ==
LOC: PHED 17:01 → PHEDA 17:01 → PH3 02-03 02:19
PROVIDERS: ADMIT Hospitalist; ATTEND Hospitalist